=== PATIENT | male | born 1995 | race American Indian/Alaskan Native ===

== ENCOUNTER 2017-06-22 15:33 | Emergency (ER) | payer SELFPAY ==
[2017-06-22 16:54] VITALS: BP 140/88
== END 2017-06-22 23:32 | disposition left against medical advice (07) ==
LOC: ED 15:33
DX: M79.89 Other specified soft tissue disorders (principal); Z53.21 Procedure and treatment not carried out due to patient leaving prior to being seen by health care provider

== ENCOUNTER 2017-08-02 23:10 | Emergency (ER) | payer OTHER ==
[2017-08-03 00:01] VITALS: BP 135/71
--- NOTE | 2017-08-03 00:34 | XRay Report ---
FINAL REPORT PROCEDURE: XR HAND 2V LT TECHNIQUE: LEFT hand radiographs, AP and lateral views. CPT 47522-YY HISTORY: left index finger swelling. Swelling of the left index finger, at the base of the left index finger..over a period of a year. No pain, no known injury. COMPARISON: No prior studies are available for comparison. FINDINGS: Fracture (s) and/or Dislocation(s): None . Alignment: Normal . Joint space(s): Normal . Soft tissues: Mild soft tissue swelling over the proximal 2nd digit left hand.. Bone mineralization: Normal . Foreign bodies: None . IMPRESSION: No acute fracture or dislocation. Mild soft tissue swelling over the proximal 2nd digit left hand..
--- NOTE | 2017-08-03 01:54 | Emergency Department Report ---
ED General Adult HPI - General Chief complaint: Extremity Injury, Upper Stated complaint: FINGER SWELLING, LT INDEX FINGER Time Seen by Provider: 08/03/17 01:37 Source: patient Mode of arrival: Ambulatory Limitations: No Limitations - History of Present Illness Initial comments: 22-year-old male past medical history asthma presents with complaint of over one year of swelling to flexor side of base of left index finger. Patient states that over one year ago he suffered a small injury at work where a pin briefly poked into his finger. Patient states that he gradually has developed swelling over the last year in this area. Patient has mild visible swelling to flexor aspect of base of left index finger. States that this has been ongoing for over one year. Has not seen any physicians for it until now. Patient denies fevers or chills or difficulty ranging his fingers left hand. Denies any erythema or redness of skin denies any paresthesias to fingers or hand. Denies any recent trauma. Denies any pain whatsoever. Onset/Timin -: year(s) Location: upper extremity (left di) Consistency: constant Worsens with: none Associated Symptoms: denies other symptoms Treatments Prior to Arrival: none - Related Data Previous Rx's Medication Instructions Recorded Last Taken Type Ibuprofen [Motrin] 800 mg PO Q8HR PRN #30 tablet 08/03/17 Unknown Rx Allergies Allergy/AdvReac Type Severity Reaction Status Date / Time No Known Allergies Allergy Unverified 06/22/17 16:51 ED Review of Systems ROS: Stated complaint: FINGER SWELLING, LT INDEX FINGER Other details as noted in HPI Constitutional: denies: chills, fever Eyes: denies: eye pain, eye discharge, vision change ENT: denies: ear pain, throat pain Respiratory: denies: cough, shortness of breath, wheezing Cardiovascular: denies: chest pain, palpitations Endocrine: no symptoms reported Gastrointestinal: denies: abdominal pain, nausea, diarrhea Genitourinary: denies: urgency, dysuria Musculoskeletal: as per HPI (swelling of the flexor aspect of the left index finger for over one year). denies: back pain, joint swelling, arthralgia Skin: denies: rash, lesions Neurological: denies: headache, weakness, paresthesias Psychiatric: denies: anxiety, depression Hematological/Lymphatic: denies: easy bleeding, easy bruising ED Past Medical Hx - Past Medical History Hx Asthma: Yes - Social History Smoking Status: Never Smoker - Medications Home Medications: Home Medications Medication Instructions Recorded Confirmed Last Taken Type Ibuprofen [Motrin] 800 mg PO Q8HR PRN #30 tablet 08/03/17 Unknown Rx ED Physical Exam - General Limitations: No Limitations General appearance: alert, in no apparent distress - Head Head exam: Present: atraumatic, normocephalic - Eye Eye exam: Present: normal appearance, PERRL, EOMI - ENT ENT exam: Present: mucous membranes moist - Neck Neck exam: Present: normal inspection - Respiratory Respiratory exam: Present: normal lung sounds bilaterally. Absent: respiratory distress - Cardiovascular Cardiovascular Exam: Present: regular rate, normal rhythm. Absent: systolic murmur, diastolic murmur, rubs, gallop - GI/Abdominal GI/Abdominal exam: Present: soft, normal bowel sounds - Rectal Rectal exam: Present: deferred - Extremities Exam Extremities exam: Present: normal inspection - Expanded Upper Extremity Exam Left Upper Arm exam: Present: normal inspection, full ROM Elbow exam: Present: normal inspection, full ROM Forearm Wrist exam: Present: normal inspection, full ROM Hand Wrist exam: Present: full ROM (range of motion PIP DIP and MCP fully intact all fingers. Range of motion wrist flexion and extension fully intact) Hand L/R Front: 1 - Positive: other (palpable cystic structure approximately 1-2 cm in diameter here. No visible cellulitis or erythema. No fluctuance. Rubbery consistency on deep palpation.) Neuro motor exam: Present: wrist extension intact, thumb opposition intact, thumb IP flexion intact, thumb adduction intact, fingers 2-5 abduction intact, other Neurosensory exam: Present: radial nerve intact, ulnar nerve intact, median nerve intact Vascular: Present: normal capillary refill (distal capillary refill less than one second all fingers), radial pulse (distal radial brachial and ulnar pulses strong to palpation), brachial pulse, ulnar pulse - Back Exam Back exam: Present: normal inspection - Neurological Exam Neurological exam: Present: alert, oriented X3, CN II-XII intact, normal gait - Psychiatric Psychiatric exam: Present: normal affect, normal mood - Skin Skin exam: Present: warm, dry, intact, normal color. Absent: rash ED Course Vital Signs 08/02/17 23:56 Temperature 98.2 F Pulse Rate 82 Respiratory 18 Rate Blood Pressure 135/71 O2 Sat by Pulse 100 Oximetry ED Medical Decision Making - Medical Decision Making A/P: Left index finger flexor ganglion cyst 1-no clinical signs of cellulitis or tenosynovitis. Range of motion all fingers left hand including left index finger fully intact, distal pulses and sensation intact 2-referred to multiple orthopedic clinics I advised him that he should have ganglionic cyst assessed by an orthopedic physician for possible excision 3-x-ray shows no bony involvement, soft tissue swelling consistent with ganglion cyst.. Patient has had this for over one year. Critical care attestation.: If time is entered above; I have spent that time in minutes in the direct care of this critically ill patient, excluding procedure time. ED Disposition Clinical Impression: Ganglion cyst of finger of left hand Disposition: - TO HOME OR SELFCARE Is pt being admited?: No Does the pt Need Aspirin: No Condition: Stable Additional Instructions: [email or web address]://[email or web address].aa[employer].org/en/diseases--conditions/pnwdiqre-lcty-[email or web address]-the-wrist- [email or web address]-hand/ http://[email or web address].org/ Prescriptions: Ibuprofen [Motrin] 800 mg PO Q8HR PRN #30 tablet PRN Reason: Pain Referrals: [facility] [Provider Group] - 3-5 Days ETHAN WARD MD [Staff Physician] - 3-5 Days Forms: Accompanied Note, Work/School Release Form(ED) Time of Disposition: 01:56
== END 2017-08-03 02:04 | disposition home or self-care (01) ==
LOC: ED 23:10
DX: M67.442 Ganglion, left hand (principal); J45.909 Unspecified asthma, uncomplicated
CPT/HCPCS: 99283

== ENCOUNTER 2020-04-15 17:17 | Emergency (ER) | payer SELFPAY ==
[2020-04-15 18:12] VITALS: BP 129/78
[2020-04-15] MEDS ORDERED: DIPHtheria,PERTUSSIS(ACELL),TETANUS VACCINE/PF 0.5 ML VIAL IM ONE (21:43)
--- NOTE | 2020-04-15 21:48 | Emergency Department Report ---
ED Upper Extremity Inj HPI - General Chief Complaint: Wound/Laceration Stated Complaint: LFT ARM PAIN Time Seen by Provider: 04/15/20 20:44 Source: patient Mode of arrival: Ambulatory Limitations: No Limitations - History of Present Illness MD Complaint: Injury to:: left, elbow -: Sudden Other Extremity Injury: Elbow: Left (laceration) - Related Data Previous Rx's Medication Instructions Recorded Last Taken Type Ibuprofen [Motrin] 800 mg PO Q8HR PRN #30 tablet 08/03/17 Unknown Rx cephALEXin [Keflex] 500 mg PO Q8HR #21 capsule 04/15/20 Unknown Rx Allergies Allergy/AdvReac Type Severity Reaction Status Date / Time No Known Allergies Allergy Unverified 06/22/17 16:51 ED Review of Systems ROS: Stated complaint: LFT ARM PAIN Other details as noted in HPI Comment: All other systems reviewed and negative ED Past Medical Hx - Past Medical History Hx Asthma: Yes - Social History Smoking Status: Current Some Day Smoker - Medications Home Medications: Home Medications Medication Instructions Recorded Confirmed Last Taken Type Ibuprofen [Motrin] 800 mg PO Q8HR PRN #30 tablet 08/03/17 Unknown Rx cephALEXin [Keflex] 500 mg PO Q8HR #21 capsule 04/15/20 Unknown Rx ED Physical Exam - General Limitations: No Limitations General appearance: alert, in no apparent distress - Head Head exam: Present: atraumatic, normocephalic - Eye Eye exam: Present: normal appearance - ENT ENT exam: Present: mucous membranes moist - Neck Neck exam: Present: normal inspection - Respiratory Respiratory exam: Present: normal lung sounds bilaterally. Absent: respiratory distress - Cardiovascular Cardiovascular Exam: Present: regular rate, normal rhythm. Absent: systolic mur mur, diastolic murmur, rubs, gallop - GI/Abdominal GI/Abdominal exam: Present: soft, normal bowel sounds - Rectal Rectal exam: Present: deferred - Extremities Exam Extremities exam: Present: normal inspection, tenderness (There is tenderness to the medial aspect of the left elbow around the area of the medial epicondyle due to a laceration which is 4-1/2 cm in length full-thickness. Full range of motion), normal capillary refill - Back Exam Back exam: Present: normal inspection - Neurological Exam Neurological exam: Present: alert, oriented X3 - Psychiatric Psychiatric exam: Present: normal affect, normal mood - Skin Skin exam: Present: warm, dry, intact, normal color. Absent: rash ED Course Vital Signs 04/15/20 17:48 Temperature 98.8 F Pulse Rate 79 Respiratory 20 Rate Blood Pressure 129/78 O2 Sat by Pulse 99 Oximetry - Procedure Description Procedures done: Area prepped and draped in sterile fashion anesthesia achieved with 2% lidocaine with no upper. X5 cc. The wound was repaired with 3-0 Prolene simple noted fashion x7 no complications good wound approximation procedure tolerated well ED Medical Decision Making - Medical Decision Making Patient had laceration repaired in the emergency department after copious irrigation. At the at the exploration of the wound there was no evidence of any retained foreign body, no evidence of any underlying fracture. Tetanus shot is updated. We will add antibiotics at this present time given the location in the event having a increased chance of infection. Disposition will discharge patient he was given strict wound return precautions and instructions to follow-up with her primary care within 2 to 3 days for wound reevaluation and going to have the sutures removed. Advised on when to return to the emergency department to be evaluated for possible suture removal. Critical care attestation.: If time is entered above; I have spent that time in minutes in the direct care of this critically ill patient, excluding procedure time. ED Disposition Clinical Impression: Elbow laceration Disposition: DC-01 TO HOME OR SELFCARE Is pt being admited?: No Does the pt Need Aspirin: No Condition: Stable Instructions: Suture Care (ED), Laceration (ED) Additional Instructions: Please return to the emergency department in 7 to 10 days for wound reevaluation and possible suture removal. Is very likely the sutures will need to stay be in for 10 days Prescriptions: cephALEXin [Keflex] 500 mg PO Q8HR #21 capsule Referrals: PRIMARY CARE, [Primary Care Provider] - 3-5 Days [facility] [Provider Group] - 3-5 Days
== END 2020-04-15 22:12 | disposition home or self-care (01) ==
LOC: ED 17:17
DX: S51.012A Laceration without foreign body of left elbow, initial encounter (principal); J45.909 Unspecified asthma, uncomplicated; F17.200 Nicotine dependence, unspecified, uncomplicated; W45.8XXA Other foreign body or object entering through skin, initial encounter; Y93.89 Activity, other specified; Y92.89 Other specified places as the place of occurrence of the external cause; Y99.8 Other external cause status
CPT/HCPCS: 90471; 90715; 99282